=== PATIENT | male | born 1940 | race Caucasian/White ===

== ENCOUNTER 2016-12-20 17:13 | Observation (INO) ==
--- NOTE | 2016-12-20 18:32 | Emergency Department Note ---
Disposition Clinical Impression: Hyperkalemia Hematoma of abdominal wall Qualifiers: Encounter type: initial encounter Qualified Code(s): S30.1XXA - Contusion of abdominal wall, initial encounter Disposition: Admitted As Inpatient Condition: Good Abdominal Pain HPI - General Chief Complaint: ED Abdominal Pain Stated Complaint: Abdominal pain Time Seen by Provider: 12/20/16 18:26 Source: patient Mode of arrival: private vehicle Limitations: no limitations Nursing Notes Reviewed: Yes Vital Signs Reviewed: Yes - History of Present Illness HPI Narrative: Patient presents to the ED complaining of left upper quadrant abdominal pain since a coughing spell earlier today around 4 PM. Describes it as a sharp pain initially that is now just a dull discomfort. States he has had a cough for 2 weeks that was originally productive but is now dry. He has had some rhinorrhea and congestion that is also improving. No sneezing or sore throat. No nausea, vomiting or diarrhea. No urinary symptoms. No fever or chills. Pain is worsened by any deep breathing or coughing. He is an ex-smoker that quit 17 years ago. He has been taking [id number] cough medication as well as Claritin-D for his symptoms. States he has had an abdominal wall hernia in the past and is concerned it may have come back. Pain Scale: 5 - Related Data Home Medications Medication Instructions Recorded Confirmed Aspirin [Lo-Dose Aspirin EC] 81 mg PO DAILY 12/20/16 12/20/16 Diclofenac Sodium (24 HR) 1 tab PO DAILY 12/20/16 12/20/16 [Voltaren XR] Multivitamin [Multi-Day Vitamins] 1 tab PO DAILY 12/20/16 12/20/16 Simvastatin [Zocor] 20 mg PO HS 12/20/16 12/20/16 Allergies Allergy/AdvReac Type Severity Reaction Status Date / Time No Known Allergies Allergy Verified 12/20/16 17:14 Constitutional: Denies: fever, chills, weakness, weight change Eyes: Denies: eye pain, eye discharge, vision change ENT ED: Reports: congestion. Denies: ear pain, throat pain, dental pain, hearing loss, epistaxis, dysphagia Cardiovascular: Denies: chest pain, palpitations, dyspnea on exertion, edema, syncope Respiratory: Reports: cough. Denies: dyspnea, wheezes, hemoptysis, stridor, sputum production Gastrointestinal: Reports: as per HPI, abdominal pain. Denies: nausea, vomiting , diarrhea, constipation, hematemesis, melena, hematochezia Genitourinary: Denies: urgency, dysuria, frequency, hematuria Musculoskeletal: Denies: back pain, neck pain, arthralgia, myalgia Integumentary: Denies: rash, abrasion, lesions Neurological: Denies: headache, weakness, numbness, paresthesias, confusion, abnormal gait, vertigo Psychiatric: Denies: anxiety, depression, suicidal thoughts, homicidal thoughts , auditory hallucinations, visual hallucinations Endocrine: Denies: fatigue Hematological/Lymphatic: Denies: easy bleeding, easy bruising Allergic/Immunologic: Denies: facial swelling, urticaria Abdominal Pain PMH - Past Medical History Medical history: Reports: other Male Surgical History: Reports: herniorrhaphy, hip replacement Psychiatric history: Reports: no psych history - Social History Smoking status: Former smoker Alcohol use: Reports: none Drug use: Reports: none Physical Exam - General Limitations: no limitations General appearance: alert, in no apparent distress - Head Head exam: atraumatic, normocephalic, normal inspection - Eye Eye exam: Present: normal appearance, PERRL, EOMI - ENT ENT exam: normal exam, normal oropharynx, mucous membranes moist - Neck Neck exam: Present: normal inspection, full ROM, trachea midline - Chest Chest inspection: Present: normal inspection, symmetric chest wall rise - Respiratory Respiratory exam: Present: normal lung sounds bilaterally - Cardiovascular Cardiovascular exam: Present: regular rate, normal rhythm, normal heart sounds - Abdominal Exam Abdominal exam: Present: soft, tenderness, normal bowel sounds. Absent: distention, guarding, rebound, rigidity Abdominal tenderness: Present: LUQ - Extremities Exam Extremities exam: Present: normal inspection, full ROM. Absent: tenderness, pedal edema - Back Exam Back exam: Present: normal inspection, full ROM. Absent: tenderness - Neurological Exam Neurological exam: Present: alert, oriented X3 - Psychiatric Psychiatric exam: Present: normal affect, normal mood - Skin Skin exam: Present: warm, dry, intact, normal color Course Course Narrative: Reason presents to the ED complaining of left upper quadrant abdominal pain after a coughing spell. While I was helping the patient move from the chair to the bed for further evaluation he became very lightheaded and dizzy and had a near syncopal episode. He became pale during the episode but no diaphoresis. Denied any chest pain or shortness of breath. He was immediately put on a groundwater monitoring technician and vital signs were obtained. Blood pressure had dropped to 90/60. Given this event labs, chest x-ray and EKG were obtained. Laboratory studies revealed a leukocytosis with left shift. He was also hyperkalemic at 5.4. No hyperacute T waves on EKG. he was given sodium bicarbonate, insulin, calcium gluconate, glucose and Kayexalate to treat his hyperkalemia. On further questioning patient states he has been eating 2 bananas a day for a few months because it "keeps him regular". Given the leukocytosis with abdominal pain an abdominal CT was obtained for further evaluation. Abdominal CT showed a large rectus abdominis sheath hematoma on the left side where he has pain. This is likely the source of his left upper quadrant abdominal pain and is related to his coughing as he denies any recent trauma. No other abnormalities were found on CT scan regarding any infection. Given his hyperkalemia requiring aggressive treatment he will need to be kept overnight for observation and repeat laboratory testing. All test results were explained to the patient and need for admission to which he was agreeable. I spoke to the hospitalist on-call, Dr. Segura, who accepted the patient. He will be given IV fluids and continued onto telemetry monitoring while his hyperkalemia is treated. Vital Signs Temperature 97.9 F 12/20/16 17:17 Pulse Rate 104 12/20/16 17:17 Respiratory Rate 22 12/20/16 17:17 Blood Pressure 145/74 12/20/16 17:17 O2 Sat by Pulse Oximetry 96 12/20/16 17:17 Temperature 97.5 F L 12/20/16 22:08 Pulse Rate 103 12/20/16 22:08 Respiratory Rate 19 12/20/16 22:08 Blood Pressure 114/88 12/20/16 22:08 O2 Sat by Pulse Oximetry 92 L 12/20/16 22:08 Oxygen Delivery Oxygen Delivery Nasal Cannula Abdominal Pain - Differential Diagnosis Differential Diagnosis: Likely: abdominal pain non-specific, diverticulitis. Unlikely: calculus of kidney, constipation, colonic obstruction, ischemic bowel - Medical Records Medical records reviewed: Yes I reviewed the patient's medical records. - Lab Data Lab results reviewed: Yes I reviewed the patient's lab results. Result diagrams: 12/20/16 19:44 12/20/16 19:44 Lab Results 12/20/16 12/20/16 Range/Units 19:44 19:44 WBC 18.8 H (4.3-11.1) K/mcL RBC 4.73 (4.19-5.50) M/mcL Hgb 14.0 (12.9-16.9) g/dL Hct 42.7 (37.5-50.1) % MCV 90.3 (83.0-100.0) fL MCH 29.6 (28.0-33.3) pg MCHC 32.8 (31.6-35.5) g/dL RDW 12.4 (11.5-14.5) % Plt Count 287 (140-400) K/mcL MPV 10.0 (9.4-12.4) fL Immature Gran % 1.7 (0-4) % Seg Neutrophils % 83.4 % Lymphocytes % 9.1 % Monocytes % 4.2 % Eosinophils % 1.0 % Basophils % 0.6 % Neutrophils # 15.7 H (1.6-8.9) K/mcL Lymphocytes # 1.7 (0.6-4.6) K/mcL Monocytes # 0.8 (0.0-1.3) K/mcL Eosinophils # 0.2 (0.0-0.6) K/mcL Basophils # 0.1 (0.0-0.2) K/mcL Sodium 139 (136-145) mEq/L Potassium 5.4 H (3.5-4.5) mEq/L Chloride 101 (98-109) mEq/L Carbon Dioxide 23 (19-29) mEq/L BUN 24 (8-26) mg/dL Creatinine 1.68 H (0.72-1.25) mg/dL Est GFR ( Amer) 49 L (> 60) Est GFR (Non-Af Amer) 40 L (> 60) BUN/Creatinine Ratio 14 (6-26) Glucose 199 H (70-99) mg/dL Calculated Osmolality 298 (280-300) Calcium 9.2 (8.6-10.8) mg/dL - Radiology Data Radiology results reviewed: Yes I reviewed the patient's radiology results. ITS Impressions Chest X-Ray 12/20/16 18:47 IMPRESSION: No acute cardiopulmonary abnormality. D/ / Mor Em MD / Mor Em MD Interpreting Provider: Mor Em MD Abdomen/Pelvis CT 12/20/16 20:32 IMPRESSION: Large left-sided rectus sheath hematoma. Hepatic steatosis and diverticulosis coli. Case discussed with Dr. Jean at 8:59 p.m. on 12/20/2016. D/ / Darron Alonso MD / Darron Alonso MD Interpreting Provider: Darron Alonso MD - EKG Data EKG attestation: Yes I reviewed and interpreted this EKG. EKG shows normal: sinus rhythm Rate: normal Rhythm: PVC's [place]/QRS: normal Voltage: decreased voltage throughout Interpretation: no acute changes
[2016-12-20 19:49] LABS: Basophils # 0.1 K/mcL (0.0-0.2); Basophils % 0.6 %; Eosinophils # 0.2 K/mcL (0.0-0.6); Hematocrit 42.7 % (37.5-50.1); Immature Granulocytes % 1.7 % (0-4); Lymphocytes # 1.7 K/mcL (0.6-4.6); Lymphocytes % 9.1 %; Mean Corpuscular HGB Conc 32.8 g/dL (31.6-35.5); Mean Corpuscular Hemoglobin 29.6 pg (28.0-33.3); Mean Corpuscular Volume 90.3 fL (83.0-100.0); Monocytes # 0.8 K/mcL (0.0-1.3); Monocytes % 4.2 %; Neutrophils # 15.7 K/mcL (1.6-8.9); Platelet Count 287 K/mcL (140-400); Red Blood Count 4.73 M/mcL (4.19-5.50); Red Cell Distribution Width 12.4 % (11.5-14.5); Segmented Neutrophils % 83.4 %
[2016-12-20 20:03] LABS: Calcium 9.2 mg/dL (8.6-10.8); Potassium 5.4 mEq/L (3.5-4.5)
[2016-12-20] MEDS ORDERED: *HR* Dextrose 50 % in Water (Syg) 50 ML SYRINGE IV ONE (20:25)
[2016-12-20] MEDS ORDERED: Calcium Gluconate 1,000 MG/10 ML VIAL IV ONE (20:25)
[2016-12-20] MEDS ORDERED: Insulin Human Regular 10 UNIT in 0.9 % Sodium Chloride 10 ML IV ONE (20:26)
[2016-12-20] MEDS ORDERED: Ondansetron 4 MG/2 ML VIAL IVP ONE (21:01)
[2016-12-20] MEDS ORDERED: INSULIN HUMAN REGULAR IV ONE (21:15)
[2016-12-20] MEDS ORDERED: SODIUM CHLORIDE 0.9% IV ONE (21:15)
[2016-12-20] MEDS ORDERED: Naloxone 0.4 MG/ML INJ IVP PRN ×2 (22:12→22:27)
[2016-12-20] MEDS ORDERED: 0.9 % Sodium Chloride 1,000 ML IVC SCH (22:15)
[2016-12-20] MEDS: 0.9 % Sodium Chloride 1,000 ML IVC SCH (23:00)
[2016-12-21 06:08] LABS: Hematocrit 36.1 % (37.5-50.1); Hemoglobin 11.9 g/dL (12.9-16.9); Mean Corpuscular Hemoglobin 29.8 pg (28.0-33.3); Mean Corpuscular Volume 90.3 fL (83.0-100.0); Mean Platelet Volume 10.3 fL (9.4-12.4); Platelet Count 236 K/mcL (140-400); Red Cell Distribution Width 12.7 % (11.5-14.5)
[2016-12-21 06:35] LABS: Calcium 8.6 mg/dL (8.6-10.8)
[2016-12-21] MEDS: 0.9 % Sodium Chloride 1,000 ML IVC SCH (07:31)
[2016-12-21] MEDS ORDERED: Aspirin Enteric Coated 81 MG Tablet PO SCH (09:00)
[2016-12-21] MEDS ORDERED: Multivit/Ca/Min/Fe/FA 1 TAB TABLET PO SCH (09:00)
--- NOTE | 2016-12-21 12:14 | Internal Med History&Physical ---
Date of Encounter: 12/21/16 Time of Encounter: 11:20 Assessment and Plan (1) Hyperkalemia Current visit: Yes Status: Acute Suspect due to acute renal insufficiency. He has been given Kayexalate and other interventions. Follow-up labs will be done in a.m. (2) Hematoma of abdominal wall Current visit: Yes Status: Acute Suspect due to coughing with aspirin and Voltaren use. Will discontinue these medications for now Qualifiers: Encounter type: initial encounter Qualified Code(s): S30.1XXA - Contusion of abdominal wall, initial encounter (3) Azotemia Current visit: Yes Status: Acute (4) Neutrophilic leukocytosis Current visit: Yes Status: Acute Suspect due primarily to bronchitis. We will check UA. Chest x-ray was unremarkable. Recheck labs in a.m. Internal Medicine - H&P: HPI Chief complaint: Cough and abdominal pain Admitted From: Home Plans for Post Hospital Care: Home History of present illness: Mr. Suarez is a 76 year old male who came to emergency room stating he had cough present for the last 2 weeks and onset of abdominal pain over the preceding 24 hours. He describes the abdominal pain as sharp and located in his left abdomen. He was evaluated in emergency room with CT scan showing left sided rectus sheath hematoma measuring up to 7.5 cm thickness. He was admitted to [facility] floor for ongoing care needs. His respiratory history is significant for having smoked from age [age] up to 1 pack per day. He has not been diagnosed with chronic lung disease and does not wear home oxygen. He has not been tested for sleep apnea. His cough is minimally productive. Past Med Surg Social Fam HX - Past Medical History Medical history: other Psychiatric history: no psych history - Social History Smoking Status: Former smoker Smokeless Tobacco Status: No Alcohol use: none Drug use: none Internal Medicine - H&P: Meds Aspirin [Lo-Dose Aspirin EC] 81 mg PO DAILY 12/20/16 [History] Diclofenac Sodium (24 HR) [Voltaren XR] 1 tab PO DAILY 12/20/16 [History] Multivitamin [Multi-Day Vitamins] 1 tab PO DAILY 12/20/16 [History] Simvastatin [Zocor] 20 mg PO HS 12/20/16 [History] Allergies No Known Allergies Allergy (Verified 12/20/16 17:14) All Systems PM: A 10-system review of systems was performed and is negative for pertinent findings except as documented above in the HPI. Review of systems: Gen.: He states his weight has been stable the past few months Cardiovascular: He denies hypertension NM heart failure angina DVT or pulmonary embolus Respiratory: As per history of present illness GI: Denies disorders of his liver gallbladder or exocrine pancreas : He denies hematuria dysuria or kidney stones Neurologic: He denies large distribution strokes or seizures Endocrine: He has been diagnosed with hyperlipidemia but denies diabetes or thyroid disease Hematology/oncology: Denies blood disorders cancers or anemia Psychiatric: He denies anxiety depression or other mental health issues [place] skeletal: He has DJD but denies gout or other bone joint or muscle disorders. - Constitutional Vitals: Temp Pulse Resp BP Pulse Ox 98.4 F 98 16 136/79 88 L 12/21/16 11:17 12/21/16 11:17 12/21/16 11:17 12/21/16 11:17 12/21/16 11:17 Exam: Gen.: He is a well-developed overweight male sitting in a chair who appears in no acute distress at present time. HEENT: Head is atraumatic and normocephalic. Eyes: EOMI. There is no scleral icterus. Mouth: Mucosa is moist. Neck: Supple and nontender. There is no thyromegaly or adenopathy noted. Heart: Regular without murmurs gallops or ectopics Lungs: No wheezes or crackles are heard. Abdomen: There is mild tenderness to palpation in the left abdominal area. No discoloration of the skin is seen. No masses or guarding are noted. Exam is limited because he is in the seated position. Extremities: There is no cyanosis or clubbing noted. There is trace edema bilaterally of the anterior arias. Dorsalis pedis and posttibial pulses are trace palpable bilaterally Neurologic: Mental status: He is talkative and a good historian. Cranial nerves : Smile is symmetric. Forehead wrinkles bilaterally. Tongue protrudes midline. EOMI. Motor: There is no pronator drift. Cerebellar: Finger to nose is intact bilaterally. Skin: Warm and dry Internal Med - H&P Results - Labs CBC & Chem 7: 12/21/16 06:03 12/21/16 06:03 Labs: Short CBC 12/21/16 Range/Units 06:03 WBC 19.1 H (4.3-11.1) K/mcL Hgb 11.9 L D (12.9-16.9) g/dL Hct 36.1 L (37.5-50.1) % Plt Count 236 (140-400) K/mcL BMP 12/21/16 06:03 Sodium 139 Potassium 5.0 H Chloride 102 Carbon Dioxide 24 BUN 28 H Creatinine 1.89 H Glucose 158 H Calcium 8.6 - VTE Reasons for not Prescribing Prophylaxis: Medical contraindication
--- NOTE | 2016-12-21 16:50 | Electrocardiograph Report ---
[address] [address] Test Date: 2016-12-20 Pat Name: Alfredo Suarez Department: [id number] Room: [facility] Gender: M Contracts Intern: : 1940 Requested By: Monica Jean Order Number: [id number] Reading MD: Chika Irvin Measurements Intervals [place] Rate: 92 P: 0 NH: 171 QRS: 64 QRSD: 85 T: 59 QT: 343 QTc: 393 Interpretive Statements SINUS RHYTHM WITH OCCASIONAL SUPRAVENTRICULAR PREMATURE COMPLEXES LOW QRS VOLTAGE IN PRECORDIAL LEADS PATTERN CONSISTENT WITH PULMONARY DISEASE Electronically Signed On 12-21-2016 16:49:02 EDT by Chika Irvin
[2016-12-22 06:03] LABS: Basophils # 0.1 K/mcL (0.0-0.2); Basophils % 0.5 %; Eosinophils # 0.4 K/mcL (0.0-0.6); Eosinophils % 2.7 %; Hematocrit 32.7 % (37.5-50.1); Hemoglobin 10.5 g/dL (12.9-16.9); Immature Granulocytes % 0.9 % (0-4); Lymphocytes # 2.1 K/mcL (0.6-4.6); Lymphocytes % 14.2 %; Mean Corpuscular HGB Conc 32.1 g/dL (31.6-35.5); Mean Corpuscular Hemoglobin 29.2 pg (28.0-33.3); Mean Corpuscular Volume 91.1 fL (83.0-100.0); Mean Platelet Volume 10.5 fL (9.4-12.4); Monocytes # 0.9 K/mcL (0.0-1.3); Monocytes % 6.4 %; Neutrophils # 11.1 K/mcL (1.6-8.9); Platelet Count 213 K/mcL (140-400); Red Blood Count 3.59 M/mcL (4.19-5.50); Red Cell Distribution Width 12.9 % (11.5-14.5); Segmented Neutrophils % 75.3 %
[2016-12-22 06:23] LABS: BUN/Creatinine Ratio 19 (6-26); Blood Urea Nitrogen 25 mg/dL (8-26); Calcium 8.4 mg/dL (8.6-10.8); Carbon Dioxide 27 mEq/L (19-29); Chloride 103 mEq/L (98-109); Glucose 146 mg/dL (70-99); Osmolality,Calculated 299 (280-300); Potassium 4.7 mEq/L (3.5-4.5); Sodium 141 mEq/L (136-145); Uric Acid 8.5 mg/dL (3.5-7.2); eGFR For African Americans > 60 (> 60); eGFR For Non-African Americans 52 (> 60)
[2016-12-22 06:58] VITALS: BP 126/55
--- NOTE | 2016-12-22 08:44 | Discharge Summary ---
Date of Encounter: 12/22/16 Time of Encounter: 08:30 - Discharge Diagnosis (1) Hyperkalemia Priority: Primary Status: Resolved (2) Hematoma of abdominal wall Priority: Secondary Status: Acute Qualifiers: Encounter type: initial encounter Qualified Code(s): S30.1XXA - Contusion of abdominal wall, initial encounter (3) Azotemia Priority: Secondary Status: Acute (4) Neutrophilic leukocytosis Priority: Secondary Status: Acute - Discharge Medications Prescriptions: Allopurinol [Zyloprim 100 MG] 200 mg PO DAILY #60 tablet Home Medications: Multivitamin [Multi-Day Vitamins] 1 tab PO DAILY 12/20/16 [History] Simvastatin [Zocor] 20 mg PO HS 12/20/16 [History] Allopurinol [Zyloprim 100 MG] 200 mg PO DAILY #60 tablet 12/22/16 [Rx] Allergies/Adverse Reactions: Allergies No Known Allergies Allergy (Verified 12/20/16 17:14) Date of admission: 12/20/16 21:34 Primary care physician: Ori Jalloh - Patient Status Disposition: Home, Self-Care Condition: Good Overall status at discharge: patient is progressing back to baseline - Discharge Instructions Follow Up With: Ori Jalloh DO [Primary Care Provider] - 1 week Forms: ED Satisfaction Letter, Work/School Release - Diet and Activity Activity: resume usual activities as tolerated Diet: advance to your usual diet Hospital course: Mr. Suarez is a 76 year old male who came to emergency room stating he had cough present for the last 2 weeks and onset of abdominal pain over the preceding 24 hours. He describes the abdominal pain as sharp and located in his left abdomen. He was evaluated in emergency room with CT scan showing left sided rectus sheath hematoma measuring up to 7.5 cm thickness. He was admitted to [facility] floor for ongoing care needs. Initial orders were written by the emergency room physician. I saw him on December 21 and performed the history and physical. He was given Kayexalate and IV fluids. Aspirin and Voltaren were discontinued. His azotemia improved with BUN and creatinine being 25 and 1.34 respectively on the day of discharge. His estimated GFR had risen to 52. His potassium was near normal at 4.7 on the day of discharge. Uric acid level returned elevated at 8.5. I will start him on allopurinol 200 mg daily. TSH was normal at 1.85. He had less abdominal pain when I saw him on December 22. His cough had also lessened. The WBC had decreased to 14.7 with resolution of the left shift. He will be discharged home and follow with Dr. Jalloh within 1 week. - Time Spent with Patient Total time spent providing and/or coordinating discharge services: - Constitutional Vitals: Temp Pulse Resp BP Pulse Ox 98.2 F 97 20 126/55 95 12/22/16 06:56 12/22/16 06:56 12/22/16 06:56 12/22/16 06:56 12/22/16 06:56 - VTE Reasons for not Prescribing Prophylaxis: Medical contraindication
== END 2016-12-22 10:40 | disposition home or self-care (01) ==
LOC: EMEROOPIK 17:13 → INPPIK 17:13
PROVIDERS: ADMIT Internal Medicine; ATTEND Internal Medicine